=== PATIENT | female | born 1985 | race Caucasian/White ===

== ENCOUNTER 2018-09-29 19:03 | Emergency (ER) | payer OTHER ==
--- NOTE | 2018-09-29 19:58 | RAD ---
EXAM DESCRIPTION: AP view of the chest CLINICAL HISTORY:32 years Female, acute sob Comparison: None FINDINGS: No focal lung consolidation. No pleural effusion. No pneumothorax. Cardiac and mediastinal silhouette is unremarkable. Pacemaker from a left subclavian approach. No acute osseous abnormality. Soft tissues are unremarkable. IMPRESSION: No acute findings. No focal lung consolidation. Electronically signed by: Víctor Clarke DO 09/29/2018 7:57 PM [facility] [employer] [employer] [employer]
[2018-09-29] MEDS ORDERED: SODIUM CHLORIDE 0.9% 1000ML 1,000 ML IVS ONE (20:09)
--- NOTE | 2018-09-29 21:35 | ED.PDOC ---
History of Present Illness - General Chief Complaint: Cardiovascular Problem Stated Complaint: short of breath, chest discomfort Time Seen by Provider: 09/29/18 19:08 Source: patient Exam Limitations: no limitations - History of Present Illness Initial Comments: the patient is a 32-year-old female presenting to the emergency room secondary to palpitations associated with some dizziness. She does have a history of having atrial fibrillation in the past. She has had sick sinus and the past. She recorded her pulse being up in the 160s before her arrival. The time she arrived here her heart rates are more down around 100. She is in sinus rhythm. No chest pain. She has a history of significant pectus excavatum for which she is scheduled to undergo surgery in the next month area additionally she did recently have a pacemaker placed about a month ago and had a total hysterectomy just about 9 days ago. She had a little bit of shortness of breath when her heart was racing. The patient has not taken her heart rate control medication in the last couple days. She has just recently undergone treatment for urinary tract infection. She feels like she might be dehydrated. Timing/Duration: 1 hour Severity: moderate Improving Factors: nothing Worsening Factors: nothing Home Medications: Ambulatory Orders Nitrofurantoin Monohydrate Mac [Macrobid] 100 mg PO BID #10 capsule 09/29/18 Review of Systems - Review of Systems Constitutional: States: malaise EENTM: States: no symptoms reported Respiratory: States: no symptoms reported Cardiology: States: palpitations Gastrointestinal/Abdominal: States: no symptoms reported Genitourinary: States: no symptoms reported Musculoskeletal: States: no symptoms reported Skin: States: no symptoms reported Neurological: States: no symptoms reported Endocrine: States: no symptoms reported All other Systems: No Change from Baseline Past Medical History (General) - Patient Medical History Hx Cardiac Disorders: Yes - SSS-Atrial Tach Hx Congestive Heart Failure: No Hx Pacemaker: Yes - a month ago Hx Diabetes: No Surgical History: Hysterectomy - Vaccination History Hx Tetanus, Diphtheria Vaccination: Yes Hx Influenza Vaccination: Yes - Social History Hx Tobacco Use: No Hx Alcohol Use: Yes - Triage Comment ED Triage Comment: Pt reports having shortness breath x3-4 hrs, with palpitations, and light headed. Pt has had an ablasion done about 5-months ago, then a Pacemaker about a month ago. Pt also has excavating chest. Family Medical History - Family History Mother Hx Family;Other: Thyroid Physical Exam - Physical Exam General Appearance: Alert, No apparent distress Eye Exam: bilateral normal Ears, Nose, Throat: hearing grossly normal, normal ENT inspection, normal pharynx Neck: full range of motion, supple Respiratory: lungs clear, normal breath sounds, no respiratory distress, no accessory muscle use Cardiovascular/Chest: normal peripheral pulses, regular rate, rhythm, no edema Peripheral Pulses: radial,right: 2+, radial,left: 2+ Gastrointestinal/Abdominal: non tender, soft Rectal Exam: deferred Back Exam: normal inspection Extremity: normal range of motion, normal inspection, no pedal edema, normal capillary refill 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, alert, normal mood/affect, oriented x 3 Skin Exam: normal color Comments: Vital Signs - 24 hr 09/29/18 09/29/18 09/29/18 19:17 19:33 19:57 Temperature 98.9 F Pulse Rate [ 82 91 H 87 left] Respiratory 20 22 22 Rate Blood Pressure 101/70 105/79 [left] O2 Sat by Pulse 99 100 Oximetry 09/29/18 09/29/18 09/29/18 20:13 20:14 20:19 Temperature Pulse Rate [ 116 H 123 H 98 H left] Respiratory 21 24 24 Rate Blood Pressure 133/70 98/79 133/70 [left] O2 Sat by Pulse 100 98 98 Oximetry 09/29/18 21:00 Temperature Pulse Rate [ 72 left] Respiratory 15 Rate Blood Pressure 107/72 [left] O2 Sat by Pulse 95 Oximetry Progress - Progress Progress: 09/29/18 21:36 32-year-old female presents secondary to palpitations and tachycardia prior to arrival. The patient was mildly dehydrated and did receive a liter of IV fluids and is feeling better afterwards. Her heart rate has also slowed. she has remained in a sinus rhythm on monitors here. She does need to resume her cardiac medications when she gets home. She does appear to still have a small urinary tract infection and will be placed on Macrobid for the next 5 days. ER warnings were given.the patient did have an elevated d-dimer however she did just recently have a total hysterectomy. No hypoxia. 09/29/18 21:38 - Results/Orders Results/Orders: Vital Signs - 24 hr 09/29/18 09/29/1818 19:17 19:33 19:57 Temperature 98.9 F Pulse Rate [ 82 91 H 87 left] Respiratory 20 22 22 Rate Blood Pressure 101/70 105/79 [left] O2 Sat by Pulse 99 100 Oximetry 09/29/18 09/29/18 09/29/18 20:13 20:14 20:19 Temperature Pulse Rate [ 116 H 123 H 98 H left] Respiratory 21 24 24 Rate Blood Pressure 133/70 98/79 133/70 [left] O2 Sat by Pulse 100 98 98 Oximetry 09/29/18 21:00 Temperature Pulse Rate [ 72 left] Respiratory 15 Rate Blood Pressure 107/72 [left] O2 Sat by Pulse 95 Oximetry 09/29/18 19:16 Telemetry .CONTINUOUS 09/29/18 19:17 Vital Signs-Tilt PRN 09/29/18 19:30 EKG STAT Laboratory Results - last 24 hr 09/29/18 09/29/18 09/29/18 19:17 19:32 19:32 WBC 6.8 RBC 4.21 Hgb 12.4 Hct 37.0 MCV 88.0 MCH 29.6 MCHC 33.6 RDW 12.9 Plt Count 513 H MPV 6.7 L Absolute Neuts (auto) 4.10 Absolute Lymphs (auto) 1.80 Absolute Monos (auto) 0.40 Absolute Eos (auto) 0.50 H Absolute Basos (auto) 0.10 Neutrophils % 60.0 Lymphocytes % 26.9 Monocytes % 5.4 Eosinophils % 6.7 H Basophils % 1.0 PT INR PTT (SP) D-Dimer, Quantitative Sodium Potassium Chloride Carbon Dioxide Anion Gap BUN Creatinine BUN/Creatinine Ratio Random Glucose Serum Osmolality Calcium Magnesium Total Bilirubin AST ALT Alkaline Phosphatase Creatine Kinase 26 CK-MB (CK-2) 0.4 CK-MB (CK-2) % 1.54 Troponin I 0.00 L B-Natriuretic Peptide 24.3 Serum Total Protein Albumin Globulin Albumin/Globulin Ratio TSH Urine Color Urine Appearance Urine pH Ur Specific [place] Urine Protein Urine Glucose (UA) Urine Ketones Urine Blood Urine Nitrite Urine Bilirubin Urine Urobilinogen Ur Leukocyte Esterase Urine RBC Urine WBC Ur Epithelial Cells Urine Bacteria Urine HCG, Qual Negative 09/29/18 09/29/18 09/29/18 19:32 19:32 19:49 WBC RBC Hgb Hct MCV MCH MCHC RDW Plt Count MPV Absolute Neuts (auto) Absolute Lymphs (auto) Absolute Monos (auto) Absolute Eos (auto) Absolute Basos (auto) Neutrophils % Lymphocytes % Monocytes % Eosinophils % Basophils % PT 9.8 INR 0.98 PTT (SP) 25.5 D-Dimer, Quantitative 3.74 H* Sodium 139 Potassium 4.0 Chloride 102 Carbon Dioxide 27 Anion Gap 14.0 BUN 16 Creatinine 0.58 L BUN/Creatinine Ratio 27.6 H Random Glucose 101 Serum Osmolality 278.9 Calcium 10.0 Magnesium 2.0 Total Bilirubin 0.5 AST 23 ALT 19 Alkaline Phosphatase 56 Creatine Kinase CK-MB (CK-2) CK-MB (CK-2) % Troponin I B-Natriuretic Peptide Serum Total Protein 8.1 Albumin 4.1 Globulin 4.0 H Albumin/Globulin Ratio 1.0 L TSH 0.88 Urine Color Yellow Urine Appearance Clear Urine pH 7.0 Ur Specific [place] 1.015 Urine Protein Negative Urine Glucose (UA) Negative Urine Ketones Negative Urine Blood Small H Urine Nitrite Negative Urine Bilirubin Negative Urine Urobilinogen 0.2 Ur Leukocyte Esterase Trace H Urine RBC 3-5 H Urine WBC 5-10 H Ur Epithelial Cells 5-10 Urine Bacteria 1+ Urine HCG, Qual chest x-ray is benign EKG shows normal sinus rhythm at 97 bpm. Mild right bundle branch block. No definitive ST segment or T-wave changes consistent with acute ischemia. Normal axis. Departure - Departure Clinical Impression: Heart palpitations, Dehydration, Cystitis Disposition: Discharge to Home or Self Care Condition: Fair Departure Forms: ED Discharge - Pt. Copy, Patient Portal Self Enrollment Diet: regular diet Activity: increase activity as tolerated Prescriptions: Nitrofurantoin Monohydrate Mac [Macrobid] 100 mg PO BID #10 capsule Home Medications: Ambulatory Orders Nitrofurantoin Monohydrate Mac [Macrobid] 100 mg PO BID #10 capsule 09/29/18 Additional Instructions: 32-year-old female presents secondary to palpitations and tachycardia prior to arrival. The patient was mildly dehydrated and did receive a liter of IV fluids and is feeling better afterwards. Her heart rate has also slowed. she has remained in a sinus rhythm on monitors here. She does need to resume her cardiac medications when she gets home. She does appear to still have a small urinary tract infection and will be placed on Macrobid for the next 5 days. ER warnings were given.
[2018-09-29 21:54] VITALS: BP 109/80; TEMP 98.5; O2SAT 100
== END 2018-09-29 21:53 | disposition home or self-care (01) ==
LOC: ER 19:03
DX: R00.2 Palpitations (principal); E86.0 Dehydration; N30.00 Acute cystitis without hematuria; I45.10 Unspecified right bundle-branch block; R00.0 Tachycardia, unspecified; I48.91 Unspecified atrial fibrillation; R06.02 Shortness of breath; R42 Dizziness and giddiness; Z95.0 Presence of cardiac pacemaker; Z98.890 Other specified postprocedural states
CPT/HCPCS: 36415; 71046; 80053; 81001; 81025; 82550; 82553; 83735; 83880; 84443; 84484; 85025; 85379; 85610; 85730; 93005; J7030